=== PATIENT | male | born 1965 | race Caucasian/White ===

== ENCOUNTER 2019-06-27 19:30 | Outpatient (CLI) | payer OTHER | END 2019-06-27 19:31 | disposition home or self-care (01) | LOC: SLEEPLAB 19:30 | PROVIDERS: ATTEND Family Medicine | DX: G47.33 Obstructive sleep apnea (adult) (pediatric) (principal); R06.83 Snoring | CPT/HCPCS: 95811 ==

== ENCOUNTER 2023-06-02 10:49 | Outpatient (CLI) | payer OTHER | END 2023-06-02 10:50 | disposition home or self-care (01) | LOC: SCSRAD 10:49 | PROVIDERS: ATTEND Physician Assistant | DX: S89.91XA Unspecified injury of right lower leg, initial encounter (principal); W11.XXXA Fall on and from ladder, initial encounter; S82.141A Displaced bicondylar fracture of right tibia, initial encounter for closed fracture ==

== ENCOUNTER 2023-06-09 06:26 | Day surgery (SDC) | payer OTHER ==
[2023-06-08 10:38] VITALS: BMI 28.1
[2023-06-09] MEDS ORDERED: fentaNYL PF 100 MCG/2 ML SYRINGE ONE (06:38)
[2023-06-09] MEDS ORDERED: Sodium Chloride 0.9% 100 ML ONE (07:20)
[2023-06-09] MEDS ORDERED: CEFAZOLIN 2 GM VIAL ONE (07:20)
[2023-06-09] MEDS ORDERED: Lidocaine 1% PF 5 ML VIAL ONE (07:53)
[2023-06-09] MEDS ORDERED: Ketorolac Tromethamine 30 MG/ML VIAL ONE (07:53)
[2023-06-09] MEDS ORDERED: PROPOFOL 200 MG/20 ML VIAL ONE (07:53)
[2023-06-09] MEDS ORDERED: Bupivacaine HCl 0.5%/Epinephrine 1:200,000/PF 30 ml Vial ONE (07:53)
[2023-06-09] MEDS ORDERED: Dexamethasone 20 MG/5 ML VIAL ONE (07:53)
[2023-06-09] MEDS ORDERED: Ondansetron PF 4 MG/2 ML Vial ONE (07:53)
[2023-06-09] MEDS ORDERED: fentaNYL 50 mcg/mL 1 mL Vial ONE ×2 (09:07→09:29)
[2023-06-09] MEDS ORDERED: HYDROmorphone 0.5 MG/0.5 ML SYRINGE ONE (09:36)
== END 2023-06-09 11:19 | disposition home or self-care (01) ==
LOC: SDC 06:26
PROVIDERS: ATTEND Orthopaedic Surgery
PROC: 0QSG04Z Reposition Right Tibia with Internal Fixation Device, Open Approach (ICD-10-PCS; principal; 2023-06-09)
DX: S82.121A Displaced fracture of lateral condyle of right tibia, initial encounter for closed fracture (principal); I10 Essential (primary) hypertension; Z79.899 Other long term (current) drug therapy; X58.XXXA Exposure to other specified factors, initial encounter
CPT/HCPCS: C1713; J1100; J1170; J1885; J2405; J2704; J3010; J3490